=== PATIENT | female | born 1940 | race Caucasian/White ===

== ENCOUNTER → 2019-12-01 11:47 | Outpatient (CLI) | payer MEDICARE, SELFPAY ==
--- NOTE | 2019-12-01 11:50 | DI.MRI.S_ITS ---
PROCEDURE: MR LUMBAR SPINE WO CON INDICATIONS: scoliosis with left LE radiculopathy TECHNIQUE: Noncontrast sagittal T1 spin echo and T2 fast echo, sagittal STIR, axial T1 and T2 fast spin echo through the lumbar spine. In cases with scoliosis, additional coronal T2 fast spin echo may be performed. COMPARISON: None. FINDINGS: Image quality: Excellent. Alignment and Curvature: There is mild L3-L4 and L4-L5 anterolisthesis. There is trace L1-L2 and L2-L3 retrolisthesis. 22? of convex left thoracolumbar spine scoliosis. Bone Marrow: Reactive endplate changes noted adjacent to the L2-L3 and L5-S1 discs. No acute vertebral body compression fractures. Spinal Cord: Conus medullaris terminates at the L1-L2 disc level. Visualized cord demonstrates normal signal and size. Paraspinous Soft Tissues: No paravertebral masses. L1-L2: Loss of disc signal. Moderate, diffuse disc bulge. Moderate bilateral facet hypertrophy. Mild to moderate narrowing of the central canal. Moderate right and mild left neural foraminal narrowing. No neural compression. L2-L3: Loss of disc signal and height. Moderate, diffuse disc bulge. Moderate bilateral facet hypertrophy. Mild to moderate narrowing of the central canal. Moderate right and mild left neural foraminal narrowing. No neural compression. L3-L4: Loss of disc signal and height. Mild, diffuse disc bulge. Severe bilateral facet hypertrophy. Moderate narrowing of the central canal. Mild bilateral neural foraminal narrowing. No neural compression. L4-L5: Loss of disc signal and height. Mild to moderate diffuse disc bulge. Severe bilateral facet hypertrophy. Moderate narrowing of the central canal. Moderate right and qhkaxuts-vp-ralyax left neural foraminal narrowing with slight compression of the exiting left L4 nerve root. L5-S1: Loss of disc signal. Mild, diffuse disc bulge. Left foraminal disc protrusion which encroaches on the left neural foramen. Moderate bilateral facet hypertrophy. No central stenosis. Severe left neural foraminal narrowing with compression of the exiting left L5 nerve root. IMPRESSION: 1. Multilevel degenerate disc disease. 2. Multilevel facet arthropathy. 3. Grade 1 L3-L4 and L4-L5 degenerative spondylolisthesis. 4. No significant central canal narrowing that results in crowding or compression of the nerve roots of the cauda equina. 5. Severe left L5-S1 neural foraminal narrowing with compression of the exiting left L5 nerve root. Moderate to severe left L4-L5 neural foraminal narrowing with slight compression of the exiting left L4 nerve root. Dictated by: Ariane Schumacher MD, PhD on 12/01/2019 at 16:55 Approved by: Ariane Schumacher MD, PhD on 12/01/2019 at 17:00
== END ==
PROVIDERS: PCP Family Medicine; Referring Provider Physical Medicine & Rehabilitation; Visit Provider Physical Medicine & Rehabilitation
DX: M43.16 Spondylolisthesis, lumbar region (principal); M41.85 Other forms of scoliosis, thoracolumbar region; M51.16 Intervertebral disc disorders with radiculopathy, lumbar region; M51.17 Intervertebral disc disorders with radiculopathy, lumbosacral region; M47.26 Other spondylosis with radiculopathy, lumbar region; M47.27 Other spondylosis with radiculopathy, lumbosacral region; Z85.3 Personal history of malignant neoplasm of breast
CPT/HCPCS: 72148

== ENCOUNTER → 2020-09-13 07:57 | Outpatient (CLI) | payer MEDICARE, SELFPAY ==
[2020-09-13 14:18] LABS: COVID19 -Nasal RAPID Negative (Negative)
== END ==
PROVIDERS: PCP Family Medicine; Visit Provider Physical Medicine & Rehabilitation
DX: Z20.822 Contact with and (suspected) exposure to COVID-19 (principal)
CPT/HCPCS: 87635; C9803

== ENCOUNTER 2020-09-15 13:35 | Outpatient (CLI) | payer MEDICARE, SELFPAY ==
[2020-09-15] VITALS (9 sets, daily range): BP systolic 103–162; BP diastolic 66–96; PULSE 63–73; RESP 13–24; TEMP 36.6; O2SAT 96–100
--- NOTE | 2020-09-15 13:37 | DI.RAD.S_ITS ---
PROCEDURE: PAIN L INTERLAMINAR/CAUDAL INJ INDICATIONS: SPONDYLOSIS COMPARISON: [facility], RG, XR L-SPINE 2-3V, 10/01/2019, 10:58. FINDINGS: Fluoroscopic spot filming was performed to verify placement of a spinal needle at the L5-S1 level, as labeled on the films. Appropriate location of the needle tip was confirmed by injection of iodinated contrast. IMPRESSION: No significant intraprocedural abnormality. Dictated by: Danial Lewis M.D. on 09/15/2020 at 14:19 Approved by: Danial Lewis M.D. on 09/15/2020 at 14:19
[2020-09-15] MEDS: MIDAZOLAM 5 MG/5 ML VIAL IV (14:31)
--- NOTE | 2020-09-15 14:31 | PC.NURSE ---
MD aware that celebrex was not held and that she continued to take it to see if it would help her rib pain. MD moving forward with injection
[2020-09-15] MEDS: IOPAMIDOL 15 ML VIAL 3 ML INJ (14:32)
[2020-09-15] MEDS: BUPIVACAINE 0.25% (PF) VIAL 2 ML INJ (14:33)
[2020-09-15] MEDS: BETAMETHASONE 30 MG/5 ML MDV 6 MG INJ (14:33)
[2020-09-15] MEDS: DEXAMETHASONE 10 MG/ML VIAL 20 MG INJ (14:33)
--- NOTE | 2020-09-15 14:44 | PM.PROC.IR.1 ---
Date/Time/Diagnoses Date of procedure: 09/15/20 Time of procedure: 14:44 Pre-procedure diagnosis: 1. HNP WITH RADICULAR FEATURES, 2. MULTILEVEL CENTRAL STENOSIS, Post-procedure diagnosis: same Procedure Notes Procedure: 1. FLUOROSCOPICALLY GUIDED CONTRAST CONTROLLED INTERLAMINAR EPIDURAL STEROID INJECTION - L5/S1 Indications: Dahiana is referred by for treatment of Bilateral Foraminal Stenosis L>R LE symptoms. Physician: Atif Carter Total Fluoroscopy time (seconds): 8 Total sedation minutes: 9 Complications: none Procedure in detail & Post-procedure care: FINDINGS Multilevel Central Spinal Stenosis with Nerve Root Compression DESCRIPTION OF PROCEDURE Fluoroscopically guided, contrast-controlled L5/S1 translaminar epidural steroid injection. Following review of allergy and review of potential side effects and complications, including, but not necessarily limited to, infection, allergic reaction, local tissue breakdown, temporary as well as permanent nerve injury, paralysis, stroke and possible , the patient indicated that the patient understood and agreed to proceed. An informed consent document was signed by the patient, witnessed by a nurse, and placed in the patient's chart. Additionally, other treatment options including modalities, medications, and physical therapy were reviewed with the patient. After review of previous anaesthesic history and IV conscious sedation the patient was deemed safe to proceed with today?s procedure with IV conscious sedation as ASA class II designation. Safety time-out was performed to confirm patient ID, procedure to be performed and site of procedure. IV sedation was accomplished with a combination of 2mg of Versed administered by the RN after DO order, titrated to patient comfort during the course of the procedure while the patient remained responsive to all verbal commands. In the prone position, following sterile prep and drape of the lumbar region, the L5/S1 translaminar space was identified fluoroscopically. The skin was anesthetized via a 25-gauge, 1.5-inch needle with 1% lidocaine solution. At this point, a 22-gauge short bevel spinal needle was atraumatically introduced and advanced under fluoroscopic guidance into the region of the L5/S1 translaminar space. Depth was confirmed on lateral view. Radiological data, including multiple fluoroscopic views of the lumbar spine, reveal a spinal needle at the L5/S1 translaminar space. Lateral views then show placement of the needle in the epidural space. Subsequent views show contrast material flowing superiorly and inferiorly in the epidural space. No vascular or intrathecal uptake is observed. At this point, using loss of resistance technique with saline and air, the epidural space was entered. This was confirmed following negative aspiration with injection of approximately 1.5cc of Isovue 200, showing excellent epidural flow without vascular or intrathecal uptake. At this point, 1cc of 1% lidocaine solution combined with 3cc or 20mg of dexamethasone and 6mg of betamethasone was injected without incident. The patent tolerated the procedure without signs of symptoms of complications prior to transfer to the recovery area for further monitoring. The patient was then transferred to the recovery area where they were observed for an appropriate period of time after the injection. The patient reported a VAS score of 6 prior to the procedure and a post-procedure VAS of 0. POST OP INSTRUCTIONS The patient was provided a Pain Log to continue to record their response to the target-specific procedure prior to follow-up visit with their referring physician. Additionally, specific post-injection care instructions and a contact number to our office were provided if concerns arise regarding possible complications associated with the procedure are suspected.
== END 2020-09-15 15:10 | disposition home or self-care (01) ==
LOC: RAD 13:36
PROVIDERS: PCP Family Medicine; Referring Provider Family Medicine; Visit Provider Physical Medicine & Rehabilitation
DX: M51.17 Intervertebral disc disorders with radiculopathy, lumbosacral region (principal); M48.07 Spinal stenosis, lumbosacral region
CPT/HCPCS: 62323; J0702; J1100; J2250; J3010

== ENCOUNTER → 2020-11-09 12:58 | Outpatient (CLI) | payer MEDICARE, SELFPAY ==
--- NOTE | 2020-11-09 12:59 | DI.RAD.S_ITS ---
PROCEDURE: XR LUMBAR SPINE MIN 4V INDICATIONS: BACK PAIN TECHNIQUE: AP, lateral, oblique, and coned-down views of L5-S1 COMPARISON: None. FINDINGS: Bones: The lumbar spine has multilevel degenerative changes and leftward curvature with a Mitchell angle of 30 degrees. No vertebral body height loss. The facets in the lumbar spine demonstrates severe degenerative changes. Disc space narrowing is present at L2-3, L3-4, and L4-5. Soft tissues: Overlying bowel gas pattern is normal. No suspicious soft tissue calcifications. The aorta has atherosclerotic calcifications with no aneurysmal dilatation. IMPRESSION: 1. Severe multilevel degenerative changes and facet arthrosis with levoscoliosis. 2. Disc disease throughout the lumbar spine at L2-3, L3-4, and L4-5. Dictated by: Junaid Nava M.D. on 11/09/2020 at 15:11 Approved by: Junaid Nava M.D. on 11/09/2020 at 15:15
== END ==
PROVIDERS: PCP Family Medicine; Referring Provider Physical Medicine & Rehabilitation; Visit Provider Physical Medicine & Rehabilitation
DX: M51.16 Intervertebral disc disorders with radiculopathy, lumbar region (principal); M47.26 Other spondylosis with radiculopathy, lumbar region; M41.50 Other secondary scoliosis, site unspecified; S32.030S Wedge compression fracture of third lumbar vertebra, sequela
CPT/HCPCS: 72110; 99214

== ENCOUNTER → 2021-03-07 13:57 | Outpatient (CLI) | payer MEDICARE, SELFPAY ==
[2021-03-07 15:12] LABS: COVID19 -Nasal RAPID Negative (Negative)
== END ==
PROVIDERS: PCP Family Medicine; Referring Provider Physical Medicine & Rehabilitation; Visit Provider Physical Medicine & Rehabilitation
DX: Z20.822 Contact with and (suspected) exposure to COVID-19 (principal)
CPT/HCPCS: 87635; C9803

== ENCOUNTER 2021-03-09 12:54 | Outpatient (CLI) | payer MEDICARE, SELFPAY ==
[2021-03-09] VITALS (8 sets, daily range): BP systolic 111–176; BP diastolic 69–95; PULSE 65–80; RESP 13–20; TEMP 37.1; O2SAT 96–99
--- NOTE | 2021-03-09 12:55 | DI.RAD.S_ITS ---
PROCEDURE: PAIN L/S FACET INJ/BLK 1ST ÁNGEL COMPARISON: [facility], XA, PAIN L INTERLAMINAR/CAUDAL INJ, 09/15/2020, 14:32. INDICATIONS: SPONDYLOSIS FINDINGS: Fluoroscopic spot filming was performed to verify placement of bilateral spinal needles at the L2-L3 level and L3-L4 level, as labeled on the films. Appropriate location of the needle tips was confirmed by injection of iodinated contrast. IMPRESSION: Intraprocedural examination within normal limits. Dictated by: Danial Lewis M.D. on 03/09/2021 at 14:33 Approved by: Danial Lewis M.D. on 03/09/2021 at 14:33
[2021-03-09] MEDS: MIDAZOLAM 5 MG/5 ML VIAL IV (13:46)
[2021-03-09] MEDS: LIDOCAINE 1% 20 ML (13:48)
[2021-03-09] MEDS: IOPAMIDOL 15 ML VIAL 3 ML INJ (13:49)
[2021-03-09] MEDS: BUPIVACAINE 0.5% (PF) VIAL 5 ML INJ (13:50)
[2021-03-09] MEDS: BETAMETHASONE 30 MG/5 ML MDV 12 MG INJ (13:51)
--- NOTE | 2021-03-09 14:05 | P.PCN_ITS ---
Date/Time/Diagnoses Date of procedure: 03/09/21 Time of procedure: 14:05 Pre-procedure diagnosis: 1. FACET ARTHROPATHY 2. AXIAL LBP 3. MULTILEVEL DDD Post-procedure diagnosis: same Procedure Notes Procedure: 1. FLUOROSCOPICALLY GUIDED CONTRAST CONTROLLED FACET JOINT INJECTIONS BILATERAL L2/3, L3/4 Indications: Dahiana is referred by Dr. Rodriguez for treatment of Axial LBP Physician: Atif Carter Total Fluoroscopy time (seconds): 12 Total sedation minutes: 12 Complications: none Procedure in detail & Post-procedure care: FINDINGS Multilevel Facet Arthropathy with Clinically significant axial LBP DESCRIPTION OF PROCEDURE Fluoroscopically guided, contrast-controlled bilateral L2/3, L3/4 facet joint injections. Following review of allergy and review of potential side effects and complications, including, but not necessarily limited to, infection, allergic reaction, local tissue breakdown, stroke, temporary or permanent nerve injury, paralysis, and possible , the patient indicated that the patient understood and agreed to proceed. An informed consent document was signed by the patient, witnessed by a nurse, and placed in the patient's chart. Additionally, other treatment options including medications, modalities, and physical therapy were reviewed with the patient. After review of previous anaesthesic history and IV conscious sedation the patient was deemed safe to proceed with today's procedure with IV conscious sedation as ASA class II designation. Safety time-out was performed to confirm patient ID, procedure to be performed and site of procedure. IV sedation was accomplished with a combination of 2mg of Versed administered by the RN after DO order, titrated to patient comfort during the course of the procedure while the patient remained responsive to all verbal commands In the prone position, following sterile prep and drape of the lumbar region, the posterior aspect of the L2/3, L3/4 facet joints were identified fluoroscopically. The skin was anesthetized via a 25-gauge 1.5-inch needle with 1% lidocaine solution into the corresponding facet joints. At this point, a 22- gauge 3.5-inch spinal needle was atraumatically introduced and advanced under fluoroscopic guidance into the corresponding facet joints. Following negative aspiration, injections of approximately 0.2cc of Isovue 200 confirmed interarticular placement without vascular uptake. The identical procedure was then performed at the L2/3, L3/4 facet joints on the left. Radiological data, including multiple fluoroscopic views of the lumbosacral spine, reveal a spinal needle at the L2/3, L3/4 facet joints bilaterally. Subsequent views show flow of contrast material both superiorly and inferiorly within the joint space without vascular or intrathecal uptake. At this point, a total of 0.5cc including a mixture of 0.25cc Marcaine and 0.25cc betamethasone was injected without complication into each of the corresponding facet joints. The patient tolerated the procedure well without signs or symptoms of complications prior to transfer to the recovery area continued monitoring without incident. The patient was then transferred to the recovery area where they were observed for an appropriate period of time after the injection. The patient reported a VAS score of 7 prior to the procedure and a post-procedure VAS of 0. POST OP INSTRUCTIONS The patient was provided a Pain Log to continue to record their response to the target-specific procedure prior to follow-up visit with their referring physician. Additionally, specific post-injection care instructions and a contact number to our office were provided if concerns arise regarding possible complications associated with the procedure are suspected.
== END 2021-03-09 14:22 | disposition home or self-care (01) ==
LOC: RAD 12:55
PROVIDERS: PCP Family Medicine; Referring Provider Physical Medicine & Rehabilitation; Visit Provider Physical Medicine & Rehabilitation
DX: M47.816 Spondylosis without myelopathy or radiculopathy, lumbar region (principal); M51.36 Other intervertebral disc degeneration, lumbar region; M54.59 Other low back pain
CPT/HCPCS: 64493; 64494; 99152; J0702; J2250; J3010

== ENCOUNTER → 2022-01-10 14:19 | Outpatient (CLI) | payer MEDICARE, SELFPAY ==
--- NOTE | 2022-01-10 14:21 | DI.RAD.S_ITS ---
PROCEDURE: XR LUMBAR SPINE MIN 4V INDICATIONS: BACK PAIN TECHNIQUE: 5 views of the lumbar spine were acquired, including bilateral oblique views. COMPARISON: [facility], , XR LUMBAR SPINE MIN 4V, 11/09/2020, 13:02. FINDINGS: Bones: 5 nonrib-bearing vertebrae are present. Similar left convexity scoliosis of the lumbar spine centered at L3. Severe multilevel degenerative changes redemonstrated with disc height loss, endplate spurring, and facet degenerative changes, not substantially changed. No acute appearing vertebral body compression fracture. Possible remote minimal compression deformity of the L3 and L1 superior endplates, however evaluation is difficult due to the spinal curvature. Soft tissues: Overlying bowel gas pattern is normal. Vascular calcifications are present. Oblique images: No pars defects. IMPRESSION: Similar severe multilevel degenerative changes of the lumbar spine. No definite acute fracture visualized radiographically. Dictated by: Jacky Souza M.D. on 01/10/2022 at 20:23 Approved by: Jacky Souza M.D. on 01/10/2022 at 20:31
== END ==
PROVIDERS: PCP Family Medicine; Referring Provider Physical Medicine & Rehabilitation; Visit Provider Physical Medicine & Rehabilitation
DX: M47.816 Spondylosis without myelopathy or radiculopathy, lumbar region (principal); S32.030S Wedge compression fracture of third lumbar vertebra, sequela; M54.17 Radiculopathy, lumbosacral region; M41.50 Other secondary scoliosis, site unspecified; Z68.23 Body mass index [BMI] 23.0-23.9, adult
CPT/HCPCS: 72110; 99214

== ENCOUNTER 2022-02-15 12:24 | Outpatient (CLI) | payer MEDICARE, SELFPAY ==
[2022-02-15] VITALS (8 sets, daily range): BP systolic 137–176; BP diastolic 61–82; PULSE 65–73; RESP 12–20; TEMP 36.3; O2SAT 95–99
--- NOTE | 2022-02-15 12:27 | DI.RAD.S_ITS ---
PROCEDURE: PAIN L INTERLAMINAR/CAUDAL INJ INDICATIONS: SPONDYLOSIS COMPARISON: [facility], , PAIN L INTERLAMINAR/CAUDAL INJ, 09/15/2020, 14:32. FINDINGS: Fluoroscopic spot filming was performed to verify placement of spinal needles at the left L5-S1 level(s), as labeled on the films. Appropriate location(s) of the needle tip(s) was confirmed by injection of iodinated contrast. IMPRESSION: Fluoroscopy for pain management. Dictated by: Burke Loo M.D. on 02/15/2022 at 15:34 Approved by: Burke Loo M.D. on 02/15/2022 at 15:34
[2022-02-15] MEDS: MIDAZOLAM 2 MG/2 ML VIAL IV (13:31)
--- NOTE | 2022-02-15 13:42 | P.PCN_ITS ---
Date/Time/Diagnoses Date of procedure: 02/15/22 Time of procedure: 13:43 Pre-procedure diagnosis: 1. HNP WITH RADICULAR FEATURES, 2. MULTILEVEL CENTRAL STENOSIS, Post-procedure diagnosis: same Procedure Notes Procedure: 1. FLUOROSCOPICALLY GUIDED CONTRAST CONTROLLED INTERLAMINAR EPIDURAL STEROID INJECTION - L5/S1 Indications: Shae is referred by Dr. Rodriguez for treatment of Bilateral Foraminal Stenosis L>R LE symptoms. Physician: Atif Carter Total Fluoroscopy time (seconds): 5 Total sedation minutes: 9 Complications: none Procedure in detail & Post-procedure care: FINDINGS Multilevel Central Spinal Stenosis with Nerve Root Compression DESCRIPTION OF PROCEDURE Fluoroscopically guided, contrast-controlled L5/S1 translaminar epidural steroid injection. Following review of allergy and review of potential side effects and complications, including, but not necessarily limited to, infection, allergic reaction, local tissue breakdown, temporary as well as permanent nerve injury, paralysis, stroke and possible , the patient indicated that the patient understood and agreed to proceed. An informed consent document was signed by the patient, witnessed by a nurse, and placed in the patient's chart. Additionally, other treatment options including modalities, medications, and physical therapy were reviewed with the patient. After review of previous anaesthesic history and IV conscious sedation the patient was deemed safe to proceed with today?s procedure with IV conscious sedation as ASA class II designation. Safety time-out was performed to confirm patient ID, procedure to be performed and site of procedure. IV sedation was accomplished with a combination of 2mg of Versed administered by the RN after DO order, titrated to patient comfort during the course of the procedure while the patient remained responsive to all verbal commands. In the prone position, following sterile prep and drape of the lumbar region, the L5/S1 translaminar space was identified fluoroscopically. The skin was anesthetized via a 25-gauge, 1.5-inch needle with 1% lidocaine solution. At this point, a 22-gauge short bevel spinal needle was atraumatically introduced and advanced under fluoroscopic guidance into the region of the L5/S1 translaminar space. Depth was confirmed on lateral view. Radiological data, including multiple fluoroscopic views of the lumbar spine, reveal a spinal needle at the L5/S1 translaminar space. Lateral views then show placement of the needle in the epidural space. Subsequent views show contrast material flowing superiorly and inferiorly in the epidural space. No vascular or intrathecal uptake is observed. At this point, using loss of resistance technique with saline and air, the epidural space was entered. This was confirmed following negative aspiration with injection of approximately 1.5cc of Isovue 200, showing excellent epidural flow without vascular or intrathecal uptake. At this point, 1 cc of 1% lido hiram solution combined with 3cc or 20mg of dexamethasone and 6mg of betamethasone was injected without incident. The patent tolerated the procedure without signs of symptoms of complications prior to transfer to the recovery area for further monitoring. The patient was then transferred to the recovery area where they were observed for an appropriate period of time after the injection. The patient reported a VAS score of 6 prior to the procedure and a post-procedure VAS of 0. POST OP INSTRUCTIONS The patient was provided a Pain Log to continue to record their response to the target-specific procedure prior to follow-up visit with their referring physician. Additionally, specific post-injection care instructions and a contact number to our office were provided if concerns arise regarding possible complications associated with the procedure are suspected.
[2022-02-15] MEDS: DEXAMETHASONE 10 MG/ML VIAL 20 MG INJ (13:50)
[2022-02-15] MEDS: BETAMETHASONE 30 MG/5 ML MDV 6 MG INJ (13:50)
[2022-02-15] MEDS: IOPAMIDOL 15 ML VIAL 3 ML INJ (13:50)
[2022-02-15] MEDS: BUPIVACAINE 0.25% (PF) VIAL 2 ML INJ (13:50)
== END 2022-02-15 14:05 | disposition home or self-care (01) ==
LOC: RAD 12:25
PROVIDERS: PCP Family Medicine; Referring Provider Physical Medicine & Rehabilitation; Visit Provider Physical Medicine & Rehabilitation
DX: M51.17 Intervertebral disc disorders with radiculopathy, lumbosacral region (principal); M48.07 Spinal stenosis, lumbosacral region
CPT/HCPCS: 62323; J0702; J1100; J2250; J3490

== ENCOUNTER 2022-06-05 12:56 | Outpatient (CLI) | payer MEDICARE, SELFPAY ==
[2022-06-05] VITALS (8 sets, daily range): BP systolic 132–193; BP diastolic 81–97; PULSE 73–90; RESP 12–20; TEMP 36.2; O2SAT 96–99
--- NOTE | 2022-06-05 12:57 | DI.RAD.S_ITS ---
PROCEDURE: PAIN L/SI FACET INJ/BLK 1STL INDICATIONS: SPONDYLOSIS COMPARISON: [facility], XA, PAIN L INTERLAMINAR/CAUDAL INJ, 02/15/2022, 13:35. [facility], CR, XR LUMBAR SPINE MIN 4V, 01/10/2022, 14:24. FINDINGS: Fluoroscopic spot filming was performed to verify placement of spinal needles on the left at the L3-L4 and L4-L5 levels, as labeled on the films. Appropriate location of the needle tips was confirmed by injection of iodinated contrast. IMPRESSION: Intraprocedural examination demonstrating appropriate positions of the needles. Dictated by: Danial Lewis M.D. on 06/05/2022 at 14:08 Approved by: Danial Lewis M.D. on 06/05/2022 at 14:08
[2022-06-05] MEDS: MIDAZOLAM 2 MG/2 ML VIAL IV (13:52)
[2022-06-05] MEDS: IOPAMIDOL 15 ML VIAL 3 ML INJ (13:57)
[2022-06-05] MEDS: BETAMETHASONE 30 MG/5 ML MDV 12 MG INJ (13:57)
[2022-06-05] MEDS: BUPIVACAINE 0.5% MDV 5 ML SUBCUT (13:58)
--- NOTE | 2022-06-05 14:11 | P.PCN_ITS ---
Date/Time/Diagnoses Date of procedure: 06/05/22 Time of procedure: 14:11 Pre-procedure diagnosis: 1. FACET ARTHROPATHY, 2. AXIAL LBP, 3. MULTILEVEL DDD Post-procedure diagnosis: same Procedure Notes Procedure: 1. FLUOROSCOPICALLY GUIDED CONTRAST CONTROLLED FACET JOINT INJECTIONS LEFT L3/4, L4/5 Indications: Dahiana is referred by Dr. Rodriguez for treatment of Axial LBP Physician: Atif Carter Total Fluoroscopy time (seconds): 6 Total sedation minutes: 10 Complications: none Procedure in detail & Post-procedure care: FINDINGS Multilevel Facet Arthropathy with Clinically significant axial LBP DESCRIPTION OF PROCEDURE Fluoroscopically guided, contrast-controlled left L3/4, L4/5 facet joint injections. Following review of allergy and review of potential side effects and complications, including, but not necessarily limited to, infection, allergic reaction, local tissue breakdown, stroke, temporary or permanent nerve injury, paralysis, and possible , the patient indicated that the patient understood and agreed to proceed. An informed consent document was signed by the patient, witnessed by a nurse, and placed in the patient's chart. Additionally, other treatment options including medications, modalities, and physical therapy were reviewed with the patient. After review of previous anaesthesic history and IV conscious sedation the patient was deemed safe to proceed with today?s procedure with IV conscious sedation as ASA class II designation. Safety time-out was performed to confirm patient ID, procedure to be performed and site of procedure. IV sedation was accomplished with a combination of 2mg of Versed administered by the RN after DO order, titrated to patient comfort during the course of the procedure while the patient remained responsive to all verbal commands. In the prone position, following sterile prep and drape of the lumbar region, the posterior aspect of the left L3/4, L4/5 facet joints were identified fluoroscopically. The skin was anesthetized via a 25-gauge 1.5-inch needle with 1% lidocaine solution into the corresponding facet joints. At this point, a 22- gauge 3.5-inch spinal needle was atraumatically introduced and advanced under fluoroscopic guidance into the corresponding facet joints. Following negative aspiration, injections of approximately 0.2cc of Isovue 200 confirmed interarticular placement without vascular uptake. Radiological data, including multiple fluoroscopic views of the lumbosacral spine, reveal a spinal needle at the left L3/4, L4/5 facet joints. Subsequent views show flow of contrast material both superiorly and inferiorly within the joint space without vascular or intrathecal uptake. At this point, a total of 0.5cc including a mixture of 0.25cc Marcaine and 0.25cc betamethasone was injected without complication into each of the corresponding facet joints. The patient tolerated the procedure well without signs or symptoms of complications prior to transfer to the recovery area for further monitoring. The patient was then transferred to the recovery area where they were observed for an appropriate period of time after the injection. The patient reported a VAS score of 7 prior to the procedure and a post-procedure VAS of 0. POSTOP INSTRUCTIONS The patient was provided a Pain Log to continue to record their response to the target-specific procedure prior to follow-up visit with their referring physician. Additionally, specific post-injection care instructions and a contact number to our office were provided if concerns arise regarding possible complications associated with the procedure are suspected.
== END 2022-06-05 14:31 | disposition home or self-care (01) ==
LOC: RAD 12:57
PROVIDERS: PCP Family Medicine; Referring Provider Physical Medicine & Rehabilitation; Visit Provider Physical Medicine & Rehabilitation
DX: M47.816 Spondylosis without myelopathy or radiculopathy, lumbar region (principal); M51.36 Other intervertebral disc degeneration, lumbar region
CPT/HCPCS: 64493; 64494; 99152; J0702; J2250

== ENCOUNTER → 2022-10-24 11:21 | Outpatient (CLI) | payer MEDICARE, SELFPAY ==
--- NOTE | 2022-10-24 11:22 | DI.RAD.S_ITS ---
PROCEDURE: XR SHOULDER RT MIN 2V INDICATIONS: Right shoulder impingement TECHNIQUE: 3 views of the shoulder were acquired. COMPARISON: None. FINDINGS: Bones: No fractures or dislocations. No suspicious bony lesions. There is vcnbrtgi-ks-qinptt glenohumeral joint degeneration and mild acromioclavicular joint degeneration. There is a large periarticular osteophyte arising from the inferior aspect of the humeral head. Visualized ribs appear intact. Soft tissues: No suspicious soft tissue calcifications. Surgical clips in the right breast. IMPRESSION: 1. Yopapsyb-qj-sbxvky degenerative joint disease. If clinical symptoms persist or there is clinical suspicion for internal derangement is, MRI is suggested for further evaluation. Dictated by: Bukre Loo M.D. on 10/24/2022 at 12:08 Approved by: Burke Loo M.D. on 10/24/2022 at 12:10
== END ==
PROVIDERS: PCP Physician Assistant; Referring Provider Physical Medicine & Rehabilitation; Visit Provider Physical Medicine & Rehabilitation
DX: M19.011 Primary osteoarthritis, right shoulder (principal); M75.41 Impingement syndrome of right shoulder; M47.816 Spondylosis without myelopathy or radiculopathy, lumbar region; M41.50 Other secondary scoliosis, site unspecified; M54.17 Radiculopathy, lumbosacral region; S32.030S Wedge compression fracture of third lumbar vertebra, sequela; Z85.3 Personal history of malignant neoplasm of breast
CPT/HCPCS: 73030; 99214

== ENCOUNTER 2023-01-10 12:15 | Outpatient (CLI) | payer MEDICARE, SELFPAY ==
[2023-01-10] VITALS (8 sets, daily range): BP systolic 153–187; BP diastolic 87–107; PULSE 77–89; RESP 16–20; O2SAT 96–99
--- NOTE | 2023-01-10 12:16 | DI.RAD.S_ITS ---
PROCEDURE: PAIN L/SI FACET INJ/BLK 1STL INDICATIONS: SPONDYLOSIS COMPARISON: [facility], , PAIN L/SI FACET INJ/BLK 1STL, 06/05/2022, 14:56. FINDINGS: Fluoroscopic spot filming was performed to verify placement of spinal needles on the left at the L3, L4, and L5 levels, as labeled on the films. Appropriate location of the needle tips was confirmed by injection of iodinated contrast. IMPRESSION: Intraprocedural examination demonstrating appropriate positions of the needles. Dictated by: Danial Lewis M.D. on 01/10/2023 at 15:20 Approved by: Danial Lewis M.D. on 01/10/2023 at 15:20
[2023-01-10] MEDS: MIDAZOLAM 2 MG/2 ML VIAL 1 MG IV (13:45)
[2023-01-10] MEDS: IOPAMIDOL 15 ML VIAL 3 ML INJ (13:50)
[2023-01-10] MEDS: BUPIVACAINE 0.5% (PF) 10 ML VIAL 2 ML INJ (13:50)
--- NOTE | 2023-01-10 13:59 | PM.PROC.IR.1 ---
Date/Time/Diagnoses Date of procedure: 01/10/23 Time of procedure: 13:59 Pre-procedure diagnosis: 1. FACET ARTHROPATHY Post-procedure diagnosis: same Procedure Notes Procedure: 1. Left L3, L4, L5 MB BLOCKS LA Indications: Dahiana is referred by CATALINA Bennett for treatment of Left Axial LBP. Physician: Atif Carter Total Fluoroscopy time (seconds): 5 Total sedation minutes: 10 Complications: none Procedure in detail & Post-procedure care: DESCRIPTION OF PROCEDURE Fluoroscopically guided, contrast-controlled left L3, L4, L5 medial branch blocks with 0.5cc of 0.5% Marcaine. Following review of allergy and review of potential side effects and complications, including, but not necessarily limited to, infection, allergic reaction, local tissue breakdown, nerve injury, paralysis, stroke and possible , the patient indicated that the patient understood and agreed to proceed. An informed consent document was signed by the patient, witnessed by a nurse, and placed in the patient's chart. After review of previous anaesthesic history and IV conscious sedation the patient was deemed safe to proceed with today?s procedure with IV conscious sedation as ASA class II designation. Safety time-out was performed to confirm patient ID, procedure to be performed and site of procedure. IV sedation was accomplished with a combination of 1mg of Versed was administered by the RN after DO order, titrated to patient comfort during the course of the procedure while the patient remained responsive to all verbal commands. In the prone position, following sterile prep and drape of the lumbar region, the left L3, L4 and L5 anatomical location of the medial branch of the dorsal ramus was identified fluoroscopically. Subsequently an anesthetic skin wheal using 1% lidocaine solution was initiated at each of the anatomical spots. Subsequently then a 22-gauge 3.5-inch spinal needle was atraumatically introduced and advanced under fluoroscopic guidance at each of the corresponding sites at the left L3, L4 and L5 MB. After negative aspiration, 0.2cc of Isovue 200 was injected, confirming placement without vascular or intrathecal uptake. Subsequently then 0.5cc of 0.5% Marcaine solution was injected at each of the corresponding sites at the left L3, L4 and L5 medial branch locations. The patient tolerated the procedure well without signs or symptoms of complications. The patient tolerated the procedure well without signs or symptoms of complications prior to transfer to the recovery area continued monitoring without incident. Post-procedure, the patient was monitored initiating provocative activities to measure the amount of relief from block of the facetogenic pain. The patient reported a VAS of 7 prior to the procedure and a post-procedure VAS of 1. It has been a pleasure to assist in the diagnostic and therapeutic care of your patient. POST OP INSTRUCTIONS The patient was provided with a Pain Log to complete over the next several hours and subsequent days prior to the patient's follow up with the ordering physician. If the patient has rustic terrazzo setter relief to the solution applied, then they may be a candidate for medial branch rhizotomy. The patient is aware, was provided, once again, with a Pain Log and will follow up with the referring physician for review and clinical correlation.
== END 2023-01-10 14:20 | disposition home or self-care (01) ==
PROVIDERS: PCP Physician Assistant; Referring Provider Physical Medicine & Rehabilitation; Visit Provider Physical Medicine & Rehabilitation
DX: M47.816 Spondylosis without myelopathy or radiculopathy, lumbar region (principal); M47.817 Spondylosis without myelopathy or radiculopathy, lumbosacral region
CPT/HCPCS: 64493; 64494; 99152; J2250

== ENCOUNTER → 2023-04-29 13:35 | Outpatient (CLI) | payer MEDICARE, SELFPAY ==
--- NOTE | 2023-04-29 | DI.MRI.S_ITS ---
PROCEDURE: MR SHOULDER RT WO CON INDICATIONS: OSTEOARTHRITIS TECHNIQUE: Noncontrast oblique coronal T2 fast spin echo with fat saturation, oblique sagittal T1 spin echo and T2 fast spin echo with fat saturation, axial T1 spin echo and T2 fast spin echo with fat saturation through the shoulder. COMPARISON: [facility], CR, XR SHOULDER RT MIN 2V, 10/24/2022, 11:17. FINDINGS: Image quality: Good Rotator cuff: Bulk: Moderate atrophy of the teres minor Mild atrophy of the infraspinatus. Teres minor: Mild tendinopathy. Supraspinatus: Mild tendinopathy. Partial thickness articular sided tear. Infraspinatus: Mild tendinopathy. Subscapularis: Moderate tendinopathy. Bones and bursae: GH joint: Moderate to severe degenerative changes. There is subchondral edema in high-grade diffuse cartilage loss. Moderate joint effusion and evidence of synovitis. Loose body/debris are seen. Possible ossified body seen in the subcoracoid space. AC joint: Moderate to severe degenerative changes. Humeral head: Subchondral edema and periarticular osteophytes, particularly at the axillary pouch. Insertional enthesopathic changes. Scapula and acromion: Subchondral edema of the glenoid. Bursa: Bursitis changes, mild. Capsule: Labrum: Circumferential attenuation and likely chronic degenerative changes. Superior labral tear is seen. Long head biceps tendon: Intra-articular tendinosis and small tear extending from the superior labrum. IGHL: Distended with effusion Rotator interval: Partially effaced Soft tissues: No axillary adenopathy. Lungs are not well seen. IMPRESSION: Moderate to severe glenohumeral and acromioclavicular degenerative changes. High-grade diffuse cartilage loss of the glenohumeral joint. There is subchondral edema. Extensive enthesopathic and osteophytic changes, particularly at the axillary pouch. Moderate joint effusion and intra-articular debris/loose bodies. Moderate to severe acromioclavicular degenerative changes. Chronic degenerative changes of the labrum and superior labral tear, extending a short length into the long head biceps tendon. Moderate atrophy of the teres minor. Mild atrophy of the infraspinatus. These findings are nonspecific. Rotator cuff tendinopathy and partial-thickness tears, without full-thickness defect identified. Dictated by: Cruz Pedersen M.D. on 04/29/2023 at 14:58 Approved by: Cruz Pedersen M.D. on 04/29/2023 at 15:05
== END ==
PROVIDERS: PCP Physician Assistant; Referring Provider Orthopaedic Surgery; Visit Provider Orthopaedic Surgery
DX: M19.011 Primary osteoarthritis, right shoulder (principal); M25.411 Effusion, right shoulder
CPT/HCPCS: 73221

== ENCOUNTER → 2023-05-16 12:54 | Outpatient (CLI) | payer MEDICARE, SELFPAY ==
[2023-05-16] VITALS (9 sets, daily range): BP systolic 147–199; BP diastolic 81–103; PULSE 69–87; RESP 12–20; TEMP 37; O2SAT 97–100
--- NOTE | 2023-05-16 13:30 | DI.RAD.S_ITS ---
PROCEDURE: PAIN L/SI FACET INJ/BLK 1STL INDICATIONS: left L3, L4 and L5 MBB SA COMPARISON: [facility], , PAIN L/SI FACET INJ/BLK 1STL, 01/10/2023, 13:49. FINDINGS: Fluoroscopic spot filming was performed to verify placement of spinal needles at the L3, L4, and L5 left medial branch level(s), as labeled on the film. IMPRESSION: Imaging guidance provided for multilevel lumbar medial branch block Dictated by: Kiko Cox M.D. on 05/16/2023 at 16:41 Approved by: Kiko Cox M.D. on 05/16/2023 at 16:48
[2023-05-16] MEDS: MIDAZOLAM 2 MG/2 ML VIAL 1 MG IV ×2 (13:44→13:47)
[2023-05-16] MEDS: iopamidoL 15 ML VIAL 3 ML INJ (13:53)
[2023-05-16] MEDS: LIDOCAINE 2% INJ MDV 20ML INJ (13:53)
--- NOTE | 2023-05-16 14:11 | P.PCN_ITS ---
Date/Time/Diagnoses Date of procedure: 05/16/23 Time of procedure: 14:11 Pre-procedure diagnosis: 1. FACET ARTHROPATHY Post-procedure diagnosis: same Procedure Notes Procedure: LEFT L3, L4 AND L5 DIAGNOSTIC MB BLOCKS Indications: Dahiana is referred by CATALINA Bennett for treatment of Left Axial LBP. Physician: Atif Carter Total Fluoroscopy time (seconds): 8 Total sedation minutes: 15 Complications: none Procedure in detail & Post-procedure care: DESCRIPTION OF PROCEDURE Fluoroscopically guided, contrast-controlled left L3, L4 AND L5 medial branch blocks with 0.5cc of 2% Lidocaine. Following review of allergy and review of potential side effects and complications, including, but not necessarily limited to, infection, allergic reaction, local tissue breakdown, nerve injury, paralysis, stroke and possible , the patient indicated that the patient understood and agreed to proceed. An informed consent document was signed by the patient, witnessed by a nurse, and placed in the patient's chart. After review of previous anaesthesic history and IV conscious sedation the patient was deemed safe to proceed with today's procedure with IV conscious sedation as ASA class II designation. Safety time-out was performed to confirm patient ID, procedure to be performed and site of procedure. IV sedation was accomplished with a combination of 2mg of Versed was administered by the RN after DO order, titrated to patient comfort during the course of the procedure while the patient remained responsive to all verbal commands In the prone position, following sterile prep and drape of the lumbar region, the left L3, L4 AND L5 anatomical location of the medial branch of the dorsal ramus was identified fluoroscopically. Subsequently an anesthetic skin wheal using 1% lidocaine solution was initiated at each of the anatomical spots. Subsequently then a 22-gauge 3.5-inch spinal needle was atraumatically introduced and advanced under fluoroscopic guidance at each of the corresponding sites at the left L3, L4 and L5 MB. After negative aspiration, 0.2cc of Isovue 200 was injected, confirming placement without vascular or intrathecal uptake. Subsequently then 0.5cc of 2% Lidocaine solution was injected at each of the corresponding sites at the left L3, L4 and L5 medial branch locations. The patient tolerated the procedure well without signs or symptoms of complications. The patient tolerated the procedure well without signs or symptoms of complications prior to transfer to the recovery area continued monitoring without incident. Post-procedure, the patient was monitored initiating provocative activities to measure the amount of relief from block of the facetogenic pain. The patient reported a VAS of 7 prior to the procedure and a post-procedure VAS of 1. It has been a pleasure to assist in the diagnostic and therapeutic care of your patient. POST OP INSTRUCTIONS The patient was provided with a Pain Log to complete over the next several hours and subsequent days prior to the patient's follow up with the ordering physician. If the patient has drapery estimator relief to the solution applied, then they may be a candidate for medial branch rhizotomy. The patient is aware, was provided, once again, with a Pain Log and will follow up with the referring physician for review and clinical correlation
== END ==
LOC: RAD 12:55
PROVIDERS: PCP Physician Assistant; Referring Provider Physical Medicine & Rehabilitation; Visit Provider Physical Medicine & Rehabilitation
DX: M47.816 Spondylosis without myelopathy or radiculopathy, lumbar region (principal)
CPT/HCPCS: 64493; 64494; 64495; 99152; J2250

== ENCOUNTER → 2023-06-13 09:34 | Outpatient (CLI) | payer MEDICARE, SELFPAY ==
--- NOTE | 2023-06-13 09:36 | DI.NM.S_ITS ---
PROCEDURE: NM JOHN PERF SPECT REST & STR Rest and exercise myocardial perfusion SPECT with gated imaging and ejection fraction RADIOPHARMACEUTICAL: 11.8 mCi Tc-99m sestamibi IV at rest and 26.7 mCi Tc-99m sestamibi IV at peak exercise. A [id number] was performed. INDICATIONS: Abnormal electrocardiogram [ECG] [EKG] TECHNIQUE: Radiopharmaceutical was injected at peak stress test, and also at rest. SPECT images were obtained. SPECT myocardial perfusion images were displayed in short axis, horizontal long axis, and vertical long axis views. Gated images were reviewed using [employer] [place] software. COMPARISON: None. CARDIAC STRESS: A standard Dago treadmill exercise tolerance test was performed by the patient under the supervision of an attending staff. The patient exercised for 5 minutes and 0 seconds; 5.1 METS; functional aerobic impairment (LAURA) is -5%. Hemodynamic data: There is normal blood pressure and heart rate response to exercise stress. Patient achieved 101% of maximum predicted heart rate at peak exercise. Resting blood pressure 166/102. Maximum blood pressure 198/104. Symptoms: Patient denied chest pain during exercise. EKG: No diagnostic EKG changes of ischemia; rare PACs and PVCs. FINDINGS: Raw data: There is good myocardial labeling by radiotracer. There is evidence of patient motion artifacts. The patient's right arm was down for image acquisition. Lxjh-ra-klmal ratio is 0.48 (normal is less than 0.38 for sestamibi tracer, and less than 0.50 for thallium tracer). Left ventricle function: Gated images demonstrate normal left ventricle wall thickening. No segmental wall motion abnormality. No transient ischemic dilation; TID is 1.0 (normal less than 1.3). The left ventricle resting end-diastolic volume is 67 mL. Left ventricle stress ejection fraction is >75%; normal values are above 45%. Myocardial perfusion: There is a small size, mild intensity reversible distal lateral wall defect. No fixed perfusion defects. IMPRESSION: Study quality reduced due to patient motion and the right arm being down during image acquisition. Likely low risk study. There is a small size, mild intensity reversible distal lateral wall defect suggestive of small territory of ischemia. Hyperdynamic LV function with normal wall motion. No exercise-induced ECG changes. Baseline hypertension with appropriate exercise-induced increase. Normal heart rate response. Fair exercise capacity. Dictated by: Gloria Bravo D.O. on 06/13/2023 at 16:54 Approved by: Gloria Bravo D.O. on 06/13/2023 at 17:00
== END ==
PROVIDERS: PCP Physician Assistant; Referring Provider Physician Assistant; Visit Provider Physician Assistant
DX: R94.31 Abnormal electrocardiogram [ECG] [EKG] (principal)
CPT/HCPCS: 78452; 93017; A9502

== ENCOUNTER 2023-07-11 06:08 | Day surgery (SDC) | payer MEDICARE, SELFPAY ==
[2023-07-03 13:56] VITALS: BMI 21.6
[2023-07-11 06:44] VITALS: BP 188/109; PULSE 88; RESP 16; TEMP 36.2; O2SAT 98; BMI 21.6
[2023-07-11] MEDS: LACTATED RINGERS 1,000 ML 84 ML IV (06:54)
--- NOTE | 2023-07-11 07:24 | PM.PREOP ---
Pre-operative Note Interval Note History & Physical reviewed/Exam performed by Physician: Yes Changes to H&P: No
== END 2023-07-11 14:00 | disposition home or self-care (01) ==
LOC: OR 06:10 → AC 08:26 → OR 12:32
PROVIDERS: PCP Physician Assistant; Referring Provider Orthopaedic Surgery; Visit Provider Orthopaedic Surgery
DX: M19.011 Primary osteoarthritis, right shoulder (principal); Z53.09 Procedure and treatment not carried out because of other contraindication
CPT/HCPCS: 23472; J2250; J2704; J3010

== ENCOUNTER 2023-08-08 06:16 | Day surgery (SDC) | payer MEDICARE, SELFPAY ==
[2023-08-08] VITALS (10 sets, daily range): BP systolic 150–167; BP diastolic 7–119; PULSE 62–97; RESP 11–18; TEMP 36.1–36.5; O2SAT 96–100; BMI 24.1
--- NOTE | 2023-08-08 06:35 | DI.RAD.S_ITS ---
PROCEDURE: XR SHOULDER RT MIN 2V INDICATIONS: TSA TECHNIQUE: 2 views of the shoulder were acquired. COMPARISON: [facility], CR, XR SHOULDER RT MIN 2V, 10/24/2022, 11:17. FINDINGS: Bones: No fractures or dislocations. Postsurgical changes from right total shoulder arthroplasty. The hardware appears intact without surrounding fracture or lucency. No suspicious bony lesions. Visualized ribs appear intact. Soft tissues: Overlying postsurgical changes are noted. IMPRESSION: Expected postoperative appearance of right shoulder arthroplasty. Dictated by: Obdulio Concepcion M.D. on 08/08/2023 at 16:29 Approved by: Obdulio Concepcion M.D. on 08/08/2023 at 16:29
[2023-08-08] MEDS: VANCOMYCIN 1,000 MG/200 ML PIGGYBACK 200 MG IV ×2 (06:48→18:33)
[2023-08-08] MEDS: ACETAMINOPHEN 325 MG TABLET 975 MG PO (06:49)
[2023-08-08] MEDS: LACTATED RINGERS 1,000 ML 42 ML IV ×2 (06:51→09:28)
--- NOTE | 2023-08-08 07:23 | PM.HP.1 ---
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 [facility] Medical History History of COVID-19 (08/2022) Psoriasis Easy bruisability Arthritis Bleeding ulcer (~2015) HLD (hyperlipidemia) Sciatica Scoliosis Breast cancer, right (2014) Impingement syndrome of right shoulder DJD of right shoulder Lumbosacral radiculopathy at L5 Facet arthropathy, lumbar History of right breast cancer Closed L3 vertebral fracture 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 Lumbar radiculopathy, acute Surgical History S/P epidural steroid injection Hx of LASIK Hx of left cataract extraction Hx of right knee surgery (2011) H/O abdominoplasty (12/2014) H/O right mastectomy (06/2014) Hx of right knee surgery (2000) Family History Father Prostate cancer Mother Stroke Social History household members: none Smoking Status: Never smoker alcohol intake: current Meds Home Medications and Allergies Home Medications Medication Instructions Recorded Confirmed Type atorvastatin 10 mg tablet 5 mg PO BEDTIME 11/18/19 08/08/23 History yagccydkow-bdgxbwjbtprhe-alznymyu 1 tab PO DAILY PRN Migraines 11/18/19 07/11/23 History 50 mg-325 mg-40 mg tablet diazepam 5 mg tablet 5 mg PO BEDTIME PRN Sleep 11/18/19 08/08/23 History estradiol 0.01% (0.1 mg/gram) 1 applic vaginal QWEEK 11/18/19 08/08/23 History vaginal cream sumatriptan succinate 50 mg tablet 50 mg PO DAILY PRN Migraines 11/18/19 08/08/23 History clobetasol 0.05 % scalp solution 1 applic topical BEDTIME PRN 05/16/22 07/03/23 History Psoriasis flare gabapentin 300 mg capsule 300 mg PO .COMPLEX #90 caps 05/24/22 08/08/23 Rx aspirin 81 mg capsule 81 mg PO DAILY 07/03/23 08/08/23 History calcium carb-vit D3-minerals 600 1 tab PO DAILY 07/03/23 07/03/23 History mg calcium-400 unit tablet celecoxib 200 mg capsule (Celebrex) 200 mg PO DAILY PRN Pain 07/03/23 08/08/23 History cholecalciferol (vitamin D3) 50 50 mcg PO DAILY 07/03/23 07/03/23 History mcg (2,000 unit) capsule (Vitamin D3) vitamin B complex 1 cap PO DAILY 07/03/23 07/03/23 History Allergies Allergy/AdvReac Type Severity Reaction Status Date / Time cefazolin [From Anc] Allergy Severe rash Verified 08/08/23 06:35 morphine AdvReac Severe Nausea, Verified 08/08/23 06:35 vomiting Exam Vital Signs (past 8 hours): - 08/08/23 06:51 Temperature 97.7 F Pulse Rate 64 Respiratory Rate 12 Blood Pressure 167/98 H Pulse Oximetry 96 Oxygen Delivery Method Room Air Oxygen Delivery Method Room Air Narrative Exam Narrative: Decreased range of motion to the shoulder. Difficulty going beyond 90? of forward flexion and abduction. 30? of external rotation with the arm at the side and internal rotation to the back pocket. Pain and crepitus coming from the glenohumeral joint. Normal rotator cuff strength. Assessment & Plan Assessment & Plan narrative: Patient with end-stage arthritis to the right glenohumeral joint unresponsive to conservative treatment. Due to this fact, patient is interested in surgery which would involve a total shoulder arthroplasty. Patient fully understands the risks limitations associated with the procedure. The risk, benefits, alternatives, possible complications, operative course, and postop outcomes were discussed. Complications including but not limiting to bleeding, infection, fracture, nerve injury, continued pain postoperatively or instability postoperatively were discussed in detail. Medical complications including but not limited to deep venous thrombosis event, anesthesia complications with excessive bleeding, vascular events or cardiac events and other possible complications were discussed in detail. Need for postoperative rehabilitation and anticipated hospital stay and clinical course were discussed in detail. Patient acknowledges understanding and elects to proceed with surgery.
--- NOTE | 2023-08-08 07:25 | PM.PREOP ---
Pre-operative Note Interval Note History & Physical reviewed/Exam performed by Physician: Yes Changes to H&P: No
[2023-08-08] MEDS: GENTAMICIN 330 MG in SODIUM CHLORIDE 0.9% 100 ML 108.25 MG IV (08:10)
[2023-08-08] MEDS: TRANEXAMIC ACID 1,000 MG VIAL 1000 MG INJ ×2 (08:20→09:27)
--- NOTE | 2023-08-08 08:40 | SUR.OPER ---
Beach chair with Maquet shoulder positioner. Lower body on padded OR bed. Head in foam padded head cradle, secured with straps. Non-operative arm secured <90 degrees abduction. Pillow under knees. Safety belt at thigh. Cloth tape over blanket over lower legs.
[2023-08-08] MEDS: LIDOCAINE 1% W/EPI 20 ML INJ (08:46)
[2023-08-08] MEDS: BUPIVACAINE 0.25% (PF) 30 ML, EPINEPHrine 0.15 MG INJ (08:47)
--- NOTE | 2023-08-08 09:42 | PM.OP.1 ---
Operative Date/Time/Diagnoses Date of procedure: 08/08/23 Time of procedure: 08:00 Pre-op diagnosis: Right glenohumeral joint arthritis Post-op diagnosis: same Procedure & Clinicians Procedure: Right total shoulder arthroplasty Same procedure as scheduled: Yes Indications: End-stage arthritis glenohumeral joint Surgeon: Bakari Dc Cylinder Die Machine Helper: Osbaldo Newby Anesthesia Type: General and Peripheral nerve block Operative Notes Findings: End-stage arthritic changes of the glenohumeral joint with no sign of any significant rotator cuff pathology. No sign of any high-riding humeral head or rotator cuff arthropathy Closure Type: primary Applied: implant(s) (Medium glenoid, 7 mm stem 46 x 18 head) Estimated Blood Loss (mL): 50 Procedure in detail: On date of service, Patient was met in the holding area. The operative site was signed and witnessed by the OR staff. The surgeries once again discussed with the patient and any remaining questions they had were answered fully. Patient was taken back to the operating theater and placed on the operating table in a supine position. Great care was taken to ensure that all bony prominences were properly padded. Patient was then placed into the beach chair position. The head and neck were properly positioned and secured. A timeout was performed verifying patient's name, procedure, and the operative site. The upper extremity was then prepped and draped in the normal sterile fashion. Previously, the bony anatomy and incision were marked out as well as injected with Marcaine with epinephrine. A deltopectoral approach was performed. 10 blade was used to incise the skin and fascial tissue. A deep knife was used to continue sharp dissection until the cephalic vein was visualized. The cephalic vein was dissected free allowing us to expose the deltopectoral interval. This interval was then developed. A Mitchell elevator was used to free up the deltoid of any scarring both superficially as well as deeply. The vein and the deltoid were taken laterally while the pectoralis was taken medially. This gave us good visualization of the strap muscles. The clavipectoral fascia was removed and the strap muscles were then retracted medially with the pectoralis. This gave us stabilization of the subscapularis. The circumflex vessels were ligated and the subscapularis was sharply excised off the lesser tuberosity and then tagged. Once the subscapularis was released we're able to dislocate the shoulder. Patient had end-stage arthritic changes to the humeral head as well as the glenoid with large osteophytes anterior inferiorly as well as posteriorly. A Ronger was then used to remove the osteophytes. See findings above for descriptions of the humeral head and glenoid. Next, cutting guide was placed and a saw was used to remove the humeral head. Once the head was removed it was templated. A 46 x 18 head gave us the best coverage. A starting awl was then used to find the canal and then the humerus was reamed and broached. Trial stem was placed and a variety of heads were trialed. A size 10 stem gave us the best fit. Protector placed for the osteotomy was then placed and and we turned our attention back to the subscapularis as well as the glenoid. The subscapularis was freed up and a 360? fashion. The degenerative anterior and inferior capsular tissue was removed. This was followed by removing the degenerative labral tissue from around the glenoid as well as the biceps insertion. Retractors were used to protect the axillary nerve while we remove the degenerative capsular and labral tissue. This gave us good visualization of the glenoid. Glenoid trials were used until we found the appropriate fit and curvature. A large glenoid provided the best fit. The center hole was drilled followed by reaming of the glenoid. The wound was copiously irrigated after reaming. Next the pegs were drilled and a trial glenoid was impacted into place. Once we were satisfied with the preparation of the glenoid, the final component was cemented into place. This was followed by impaction. We Return to our attention back to the humerus. The protector plate was removed and heads were trialed once again until we found the appropriate fit. Once again the 46 x 18 head provided the best coverage as well as stability to the glenohumeral joint. Trials were removed and bone tunnels were made into the humeral neck. #2 FiberWire were passed through the bone tunnels for eventual subscapularis repair. The final stem and head were impacted into place and the shoulder was reduced. It was taken through range of motion and was felt to be stable in both posterior translation as well as external and internal rotation with abduction. The subscapularis was repaired back to the lesser tuberosity through the bone tunnels. This was then reinforced with soft tissue repair. Part of the rotator interval was then closed. A drain was placed and the rest of the wound was closed in a layered fashion. The shoulder was then cleaned dried and dressed and the patient was taken to the PACU in stable condition. Patient will follow our postoperative protocol for total shoulder arthroplasty. Complications: none Post-operative Condition: stable Disposition: same day surgery Plan for aftercare: Patient will follow our postoperative protocol for a total shoulder arthroplasty
[2023-08-08] MEDS: OXYCODONE IR 5 MG TABLET PO ×2 (10:31→22:41)
[2023-08-08] MEDS: ONDANSETRON 4 MG/2 ML INJ IV ×3 (10:33→17:30)
[2023-08-08] MEDS: HYDROMORPHONE 0.5 MG INJ IV (11:01)
[2023-08-08 11:02] LABS: Estimated Glomerular Filt Rate > 60 mL/min (>60)
[2023-08-08] MEDS: LACTATED RINGERS 1,000 ML 100 ML IV ×2 (11:02→22:36)
[2023-08-08] MEDS: OXYCODONE IR 10 MG TABLET PO (11:20)
--- NOTE | 2023-08-08 13:41 | PT.IIE ---
Current Diagnoses Primary osteoarthritis, right shoulder (08/08/23) Surgery Performed Operation Date: 08/08/23 07:45 Actual Procedures p Total Shoulder Arthroplasty(Right) - Bakari Dc MD Surgical History (Last Reviewed 08/08/23 @ 07:24 by Bakari Dc MD) H/O abdominoplasty (12/2014) H/O right mastectomy (06/2014) Hx of LASIK Hx of left cataract extraction Hx of right knee surgery (2000) Hx of right knee surgery (2011) S/P epidural steroid injection Medical History (Last Reviewed 08/08/23 @ 07:24 by Bakari Dc MD) Arthritis Bleeding ulcer (~2015) Breast cancer, right (2014) Closed L3 vertebral fracture DJD of right shoulder Easy bruisability Facet arthropathy, lumbar History of COVID-19 (08/2022) History of right breast cancer HLD (hyperlipidemia) Impingement syndrome of right shoulder Lumbar radiculopathy, acute Lumbosacral radiculopathy at L5 Psoriasis Sciatica Scoliosis 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 Two steps down into dining area with two rails Home Environment Standard Height Toilet,Walk in Shower,Built-In Shower Seat Home Equipment Front Wheel Walker,Grab Bars Near Toilet,Grab Bars In Shower Employment Status Retired Additional Social History Comment Pt states that she has walking sticks and that her daughter has come up from [place] to help her for a week at d/c. M2 PT-IP Current Condition Start: 08/08/23 13:21 Freq: NEEDED Status: Active Protocol: Document 08/08/23 13:20 MB (Rec: 08/08/23 13:41 MB [id number]) Physical Therapy Current Condition Current Condition Evaluation Date 08/08/23 Treatment Diagnosis R TSR M3 PT-IP Subjective Start: 08/08/23 13:21 Freq: NEEDED Status: Active Protocol: Document 08/08/23 13:20 MB (Rec: 08/08/23 13:41 MB [id number]) Subjective Physical Therapy Visit Type Type Initial Evaluation Visit Start Time 13:20 Visit Stop Time 13:33 Number of RN INTEGRATED Visits 0 Physical Therapy Visit Comments Patient Comments I'm very nauseated. Therapy Pain Assessment Pain When Pain Assessed During Mobility Pain Present Pain Present Pain Reported Location Right arm Intensity 6 Scale Used Numeric (0 - 10) M4 PT-IP Mobility and Gait Start: 08/08/23 13:21 Freq: NEEDED Status: Active Protocol: Document 08/08/23 13:20 MB (Rec: 08/08/23 13:41 MB [id number]) PT-Bed Mobility Assessment Supine to Sit Supine to Sit Standby Assistance Sit to Supine Sit to Supine Standby Assistance Scooting Scooting to Edge of Bed Standby Assistance Scooting Up and Down in Bed Standby Assistance PT-Transfer Assessment Sit to and From Stand Sit to and from Stand Contact Guard Assistance,1 Person Assistance Equipment Transfer Assistive Device None Orthotic/Prosthetic Devices or Brace: No Transfer Ability Level of Assist Standby Assistance Comments Mobility Comments Pt requires cues and encouragement for mobility given nausea. She is very orthostatic with mobility and her BP and HR in E are: 154/ 73, 64; standing 110/79 and given nausea and pt reporting she feels like she might need to vomit and orthostasis, side steps only and returned to be Gait Assessment Gait Gait Assistance Required: Contact Guard Assist Distance (Feet) 2 Able to Maintain Weight Bearing Status Yes During Gait Assistive Devices Assistive Device None Orthotic/Prosthetic Devices or Brace: No Comments Gait Comments Left side steps only up to the HOB PT-Balance Assessment Sitting Balance and Reactions Static Sitting Balance Ability Good Dynamic Sitting Balance Ability Good Standing Balance and Reactions Static Standing Balance Ability Good Dynamic Standing Balance Ability Fair M5 PT-IP Objective Assessments Start: 08/08/23 13:21 Freq: NEEDED Status: Active Protocol: Document 08/08/23 13:20 MB (Rec: 08/08/23 13:41 MB [id number]) Orientation Orientation/Cognition Level of Alertness Alert Orientation Name,Age,Birthday,Month,Date, Year,Day of Week,Place, Situation Language Function Ability No Deficits Noted Safety Awareness Understands Safety Issues Memory Description No Deficits Noted Gross Range of Motion Upper Extremity ROM Impairments RUE in sling Lower Extremity ROM Assessment Within Functional Limits Strength Upper Extremity Strength Assessment Right Impaired Lower Extremity Strength Assessment Within Functional Limits M6 PT-IP Treatment Start: 08/08/23 13:21 Freq: NEEDED Status: Active Protocol: Document 08/08/23 13:20 MB (Rec: 08/08/23 13:41 MB [id number]) Physical Therapy Treatment Other Treatments Other Treatment Performed Per Dr. Dc's note, post-op right TSR protocol and no other details. PT provides [facility] post-op TSR handouts to patient, assume NWB and sling use, pt in sling M7 PT-IP Assessment and Plan Start: 08/08/23 13:21 Freq: NEEDED Status: Active Protocol: Document 08/08/23 13:20 MB (Rec: 08/08/23 13:41 MB [id number]) PT Summary Assessment and Plan Potential Rehabilitation Potential Good Status of Condition at Evaluation Evolving Summary Impairments Pain,ROM,Balance,Bed Mobility, Transfers,Gait,Activity Tolerance Progress Towards Goals Slow Progress due to Medical Issues Assessment Summary Pt is an 83 y/o female who presents with nausea and orthostasis same day right TSR . Con't mobility efforts with staff. Recommend 24 hour superv and PT at d/c. Goals Bed Mobility Goal Independent Transfer Goal Independent,Cane Gait Goal Independent,Cane Gait Distance 100 Other Goals Pt will ascend and descend 2 steps with rail. Days to Meet Goals 3 Frequency of Treatment Frequency Of Treatment Twice a Day Treatment Plan Physical Therapy Treatment Plan Bed Mobility Training,Transfer Training,Gait Training, Therapeutic Exercise,Balance Retraining,Post Op Education, Discharge Planning,Hot or Cold Pack Precautions Shoulder Precautions Sling Other Precautions Dr note only states post-op TSR precautions/protocol. Will assume NWB and sling. Weight Bearing Status Weight Bearing Status Non-Weight Bearing Recommendations To Nursing Amount of Assist Needed 2 Person Assist Discharge Recommendations PT Discharge Recommendations Home with 03/12 Assist Available,Outpatient PT Transportation Needs at Discharge Private Vehicle
--- NOTE | 2023-08-08 19:32 | PC.NURSE ---
Patient arrived from PACU at approximately 1050 a.m. A&OX4. Aquacel to R arm c/d/i, arm in R shoulder sling. She is able to move and grasp with fingers, and reports minimal numbness to R hand. Initially she reports pain severe upon arrival, pain well controlled with prn 0.5mg hydromorphone and prn 10 mg oxycodone. She is able to rest a while after working with PT, upon awakening reports severe nausea. VSS. She denies dizziness. Continuous monitoring.
[2023-08-08] MEDS: SENNOSIDES 8.6 MG TABLET 17.2 MG PO (21:00)
[2023-08-08] MEDS: DOCUSATE 100 MG CAPSULE PO (21:01)
[2023-08-08] MEDS: TRAMADOL 50 MG TABLET PO (21:01)
[2023-08-08] MEDS: ACETAMINOPHEN 325 MG TABLET 650 MG PO (22:43)
[2023-08-08] MEDS: ONDANSETRON 4 MG ODT PO (22:43)
[2023-08-08] MEDS: diphenhydrAMINE 25 MG TABLET 50 MG PO (22:46)
[2023-08-09 03:33] VITALS: BP 146/72; PULSE 73; RESP 17; TEMP 36.8; O2SAT 97
[2023-08-09] MEDS: OXYCODONE IR 5 MG TABLET PO ×2 (03:51→10:05)
[2023-08-09 06:56] LABS: Hematocrit 40.8 % (36-46); Hemoglobin 13.6 g/dL (12.0-16.0); Mean Corpuscular HGB Conc 33.5 % (30-36); Mean Corpuscular Volume 101.8 fL (80-100); Platelet Count 165 X10^3/uL (150-400); Red Blood Cell Count 4.01 X10^6/uL (4.0-5.2); White Blood Cell Count 13.4 X10^3/uL (4.5-11.0)
[2023-08-09 07:00] VITALS: BP 131/68; PULSE 70; RESP 16; TEMP 36.5; O2SAT 96
--- NOTE | 2023-08-09 07:02 | PM.DS.1 ---
History of Present Illness History of Present Illness Date Patient Seen: 08/09/23 Time Patient Seen: 07:02 Chief complaint: OPB Narrative: Operative Date/Time/Diagnoses Date of procedure: 08/08/23 Time of procedure: 08:00 Pre-op diagnosis: Right glenohumeral joint arthritis Post-op diagnosis: same Procedure & Clinicians Procedure: Right total shoulder arthroplasty Same procedure as scheduled: Yes Indications: End-stage arthritis glenohumeral joint Surgeon: Bakari Dc Coach Mechanic: Osbaldo Newby Anesthesia Type: General and Peripheral nerve block Operative Notes Findings: End-stage arthritic changes of the glenohumeral joint with no sign of any significant rotator cuff pathology. No sign of any high-riding humeral head or rotator cuff arthropathy Closure Type: primary Applied: implant(s) (Medium glenoid, 7 mm stem 46 x 18 head) Estimated Blood Loss (mL): 50 Discharge Providers Provider Discharge Date: 08/09/23 Primary care physician: Ne Bennett PA-C Consults: 08/08/23 09:39 Consult to Discharge Planning Routine Comment: Consult to Physical Therapy Evaluate & Treat Comment: Physician Instructions: Evaluate and Treat Discharge provider: Delia Garcia PA-C Summary Hospital Course Discharge Diagnosis: Right glenohumeral joint arthritis, s/p right total shoulder arthroplasty Hospital Course: Ms Guerin's hospital course was remarkable for post-op nausea. On the morning of POD# 1, she was feeling much better and wanted to go home w/ the assistance of her daughter. She says she also has OT set up through [facility]; it appears that an order was sent from our office. She was voiding without difficulty and was no longer nauseated. 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 Sensation to light touch intact throughout RUE. Aquacel dressing CDI. Hemovac with scant bloody drainage. Objective Labs 08/09/23 06:17 08/08/23 10:35 Labs: Laboratory Results - last 24 hr 08/08/23 08/09/23 10:35 06:17 WBC 13.4 H RBC 4.01 Hgb 13.6 Hct 40.8 MCV 101.8 H MCH 34.0 MCHC 33.5 RDW 14.0 Plt Count 165 Creatinine 0.56 Estimated GFR > 60 PFSH Medical History History of COVID-19 (08/2022) Psoriasis Easy bruisability Arthritis Bleeding ulcer (~2015) HLD (hyperlipidemia) Sciatica Scoliosis Breast cancer, right (2014) Impingement syndrome of right shoulder DJD of right shoulder Lumbosacral radiculopathy at L5 Facet arthropathy, lumbar History of right breast cancer Closed L3 vertebral fracture 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 Lumbar radiculopathy, acute Surgical History S/P epidural steroid injection Hx of LASIK Hx of left cataract extraction Hx of right knee surgery (2011) H/O abdominoplasty (12/2014) H/O right mastectomy (06/2014) Hx of right knee surgery (2000) Family History Father Prostate cancer Mother Stroke Social History household members: none Smoking Status: Never smoker alcohol intake: current Discharge Assessment & Plan Assessment and Plan Assessment: Right glenohumeral joint arthritis, s/p right total shoulder arthroplasty Plan of Treatment: Discharge home w/ daughter, HHOT w/ [facility], multimodal pain control, f/u in office in 2 weeks as scheduled. Discharge Plan Discharge Plan Patient Disposition: Home Discharge orders & Medications Discharge Orders: Discharge (Order); Ordered 08/09/23 Ordered By: Delia Garcia Prescriptions: New oxycodone 5 mg Tablet 5 mg PO Q4-6H PRN (Reason: Pain, Moderate (4-6)) Qty: 30 0RF docusate sodium 100 mg Capsule 100 mg PO BID PRN (Reason: constipation) Qty: 60 1RF ondansetron 4 mg Tablet,Disintegrating 4 mg PO Q6H PRN (Reason: Nausea And Vomiting) Qty: 20 0RF Continued vitamin B complex Capsule 1 cap PO DAILY cholecalciferol (vitamin D3) [Vitamin D3] 50 mcg (2,000 unit) Capsule 50 mcg PO DAILY calcium carbonate-vit D3-min 600 mg calcium- 400 unit Tablet 1 tab PO DAILY metoprolol tartrate 25 mg tablet 12.5 mg PO DAILY timolol maleate 0.5 % Drops 1 drp OPHTHALMIC (EYE) BID gabapentin 300 mg capsule 300 mg PO DAILY PRN (Reason: nerve pain) diazepam 5 mg tablet 5 mg PO BEDTIME PRN (Reason: Sleep) atorvastatin 10 mg tablet 5 mg PO BEDTIME ookwrcxvgm-evnqrftijpjqj-sjxi 50-325-40 mg tablet 1 tab PO DAILY PRN (Reason: Migraines) sumatriptan succinate 50 mg tablet 50 mg PO DAILY PRN (Reason: Migraines) estradiol 0.01 % (0.1 mg/gram) cream 1 applic VAG QWEEK PRN (Reason: vaginal symptoms) clobetasol 0.05 % solution 1 applic topical BEDTIME PRN (Reason: Psoriasis flare) Follow up/Referrals: Ne Bennett PA-C [Primary Care Provider] - Bakari Dc MD [Physician] - 08/19/23 10:30 am (Follow up w/ Ines Burris PA-C, at [facility] in [place].) Diet/Activity/Treatments Diet: Diet as Tolerated Activity: NO active range of motion at the shoulder for 4 weeks after surgery. Pendulum exercises are ok. Start OT 3-4 days after surgery. Sling on at most times during the day when active; may have off when seated. Wear sling while sleeping. Ok to use hand to eat and type. Cold/Heat Therapy: Ice to shoulder as needed for pain. Skin/Wound/Dressing Care Report to your healthcare provider any signs of infection, such as:: chills, fever, night sweats, unusual drainage and unusual redness Dressing: May shower. Leave dressing in place until follow up in office. Call the office if the dressing becomes saturated inside. Visit Report/Discharge Packet Instructions: DI for Prescription Opioid Use, DI for Shoulder Replacement Stand Alone Forms: Patient Portal/API, Surgery Discharge Discharge Data Primary Care Provider: Ne Bennett Attending Provider: Bakari Dc VTE Deep Vein Thrombosis/Pulmonary Embolism Present on Admission: No
[2023-08-09] MEDS: DOCUSATE 100 MG CAPSULE PO (08:27)
--- NOTE | 2023-08-09 11:08 | PT.IPTN ---
Current Diagnoses Primary osteoarthritis, right shoulder (08/08/23) Presence of unspecified artificial shoulder joint (08/08/23) Surgery Performed Operation Date: 08/08/23 07:45 Actual Procedures p Total Shoulder Arthroplasty(Right) - Bakari Dc MD Physical Therapy Treatment Note M2 PT-IP Current Condition Start: 08/08/23 13:21 Freq: NEEDED Status: Active Protocol: Document 08/08/23 13:20 MB (Rec: 08/08/23 13:41 MB [id number]) Physical Therapy Current Condition Current Condition Evaluation Date 08/08/23 Treatment Diagnosis R TSR M3 PT-IP Subjective Start: 08/08/23 13:21 Freq: NEEDED Status: Active Protocol: Document 08/09/23 12:07 TS (Rec: 08/09/23 12:29 TS [id number]) Subjective Physical Therapy Visit Type Type Treatment Note Visit Start Time 11:08 Visit Stop Time 11:35 Notes OT orders recommended Number of LABORATORY ENGINEER Visits 1 Physical Therapy Visit Comments Patient Comments Pt reports feeling better today, no nausea, is agreeable to PT. Therapy Pain Assessment Pain When Pain Assessed During Mobility Pain Present Pain Present Pain Reported M4 PT-IP Mobility and Gait Start: 08/08/23 13:21 Freq: NEEDED Status: Active Protocol: Document 08/09/23 12:07 TS (Rec: 08/09/23 12:29 TS [id number]) PT-Bed Mobility Assessment Supine to Sit Supine to Sit Standby Assistance Scooting Scooting to Edge of Bed Standby Assistance PT-Transfer Assessment Sit to and From Stand Sit to and from Stand Standby Assistance Equipment Transfer Assistive Device None Orthotic/Prosthetic Devices or Brace: No Comments Mobility Comments Supine to sit SBA with HOB elevated and LUE to upright trunk. Daughter was instructed in and performed donning of gait belt and management of RUE sling. Pt was educated on her shoulder precautions. STS from bed SBA with no UE support. She ambulated CGA with no AD ~150' with some unsteadiness. She performed steps x3 with CGA and use of single rail with LUE. Pt ambulated back to room, was left in chair, daughter in room, RN notified. Gait Assessment Gait Gait Assistance Required: Contact Guard Assist Distance (Feet) 150 Able to Maintain Weight Bearing Status Yes During Gait Assistive Devices Assistive Device None Orthotic/Prosthetic Devices or Brace: No Gait Deviations General Gait Pattern Lateral Trunk Lean Factors Limiting Gait Function Factors Limiting Gait Function Decreased Activity Tolerance, Decreased Strength,Pain,Poor Balance,Poor Safety Awareness Comments Gait Comments See mobility comments Stair Climbing Assessment Evaluation Level of Assist On Stairs Contact Guard Assistance,1 Person Assistance Devices Stair Climbing Assistive Devices Left Railing Technique/Endurance Stair Climbing Direction Ascend and Descend Stair Climbing Technique Step to Step Number of Steps Climbed 3 Comments Stair Climbing Comments See mobility comments PT-Balance Assessment Sitting Balance and Reactions Static Sitting Balance Ability Good Dynamic Sitting Balance Ability Good Standing Balance and Reactions Static Standing Balance Ability Good Dynamic Standing Balance Ability Fair Device Used FWW M5 PT-IP Objective Assessments Start: 08/08/23 13:21 Freq: NEEDED Status: Active Protocol: Document 08/08/23 13:20 MB (Rec: 08/08/23 13:41 MB [id number]) Orientation Orientation/Cognition Level of Alertness Alert Orientation Name,Age,Birthday,Month,Date, Year,Day of Week,Place, Situation Language Function Ability No Deficits Noted Safety Awareness Understands Safety Issues Memory Description No Deficits Noted Gross Range of Motion Upper Extremity ROM Impairments RUE in sling Lower Extremity ROM Assessment Within Functional Limits Strength Upper Extremity Strength Assessment Right Impaired Lower Extremity Strength Assessment Within Functional Limits M6 PT-IP Treatment Start: 08/08/23 13:21 Freq: NEEDED Status: Active Protocol: Document 08/08/23 13:20 MB (Rec: 08/08/23 13:41 MB [id number]) Physical Therapy Treatment Other Treatments Other Treatment Performed Per Dr. Dc's note, post-op right TSR protocol and no other details. PT provides [facility] post-op TSR handouts to patient, assume NWB and sling use, pt in sling M7 PT-IP Assessment and Plan Start: 08/08/23 13:21 Freq: NEEDED Status: Active Protocol: Document 08/09/23 12:07 TS (Rec: 08/09/23 12:29 TS [id number]) PT Summary Assessment and Plan Potential Rehabilitation Potential Good Summary Impairments Pain,ROM,Balance,Bed Mobility, Transfers,Gait,Activity Tolerance Progress Towards Goals Progressing Toward Goals Assessment Summary Dahiana is making good progress with her mobility. She is performing bed mobility SBA with LUE support and STS with no AD. She progressed her gait to ~150' CGA with no AD, has minor LOB x1. She performed steps x3 CGA with single rail, had no LOB. PT is recommending home with 24/7 assist and HHPT. Goals Bed Mobility Goal Independent Transfer Goal Independent,Cane Gait Goal Independent,Cane Gait Distance 100 Other Goals Pt will ascend and descend 2 steps with rail. Days to Meet Goals 3 Frequency of Treatment Frequency Of Treatment Twice a Day Treatment Plan Physical Therapy Treatment Plan Bed Mobility Training,Transfer Training,Gait Training, Therapeutic Exercise,Balance Retraining,Post Op Education, Discharge Planning,Hot or Cold Pack Precautions Shoulder Precautions Sling Other Precautions Dr note only states post-op TSR precautions/protocol. Will assume NWB and sling. Weight Bearing Status Weight Bearing Status Non-Weight Bearing Recommendations To Nursing Amount of Assist Needed 1 Person Assist Discharge Recommendations PT Discharge Recommendations Home with 24/7 Assist Available,Outpatient PT Transportation Needs at Discharge Private Vehicle
--- NOTE | 2023-08-09 13:01 | CM.DANOTE ---
Initial DCP Assessment Note Pt is an 83 yo female, resident of [place], now POD#1 from Rt shoulder surgery by Dr Dc PCP: Ne Bennett Payer: Reji BACON Reviewed chart, pt discussed in multidisciplinary rounds this morning. Therapy has cleared pt for return home w/family to assist and pt has planned for home, DC order from Ortho has already been initiated this morning. No barriers identified at this time to patient's safe discharge home w/family to assist; close outpatient f/u recommended. CM team will plan to follow closely in case any DC needs or concerns arise. ROSA Sellers Discharge Planning/Care Management CM Discharge Assessment Start: 08/09/23 12:51 Freq: Status: Active Protocol: Document 08/09/23 12:52 CHE (Rec: 08/09/23 13:01 CHE [id number]) Discharge Planning Assessment Assigned Township Clerk ROSA [place] DPOA/Assigned Designee Name Citlaly Clark, willie Contact Information [phone] Advance Directives? Yes Advance Directives on File No History Provided By Patient,Medical Record Prior Living Arrangements House Household Members none Type of transporation used prior to Drives own vehicle admit Independent with ADL's Yes Is patient alert and oriented? Yes Patient/Family Preference OP PT Therapy Barriers to Discharge No Discharge Plan Home Transportation Arrangement Family Referrals Initiated None needed Additional Comment Outpatient PT
--- NOTE | 2023-08-09 13:10 | OT.IP.EVAL ---
Current Diagnoses Primary osteoarthritis, right shoulder (08/08/23) Presence of unspecified artificial shoulder joint (08/08/23) Surgery Performed Operation Date: 08/08/23 07:45 Actual Procedures p Total Shoulder Arthroplasty(Right) - Bakari Dc MD Past Medical History (Last Reviewed 08/08/23 @ 07:24 by Bakari Dc MD) Arthritis Bleeding ulcer (~2016) Breast cancer, right (2014) Closed L3 vertebral fracture DJD of right shoulder Easy bruisability Facet arthropathy, lumbar History of COVID-19 (08/2022) History of right breast cancer HLD (hyperlipidemia) Impingement syndrome of right shoulder Lumbar radiculopathy, acute Lumbosacral radiculopathy at L5 Psoriasis Sciatica Scoliosis 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 Surgical History (Last Reviewed 08/08/23 @ 07:24 by Bakari Dc MD) H/O abdominoplasty (12/2014) H/O right mastectomy (06/2014) Hx of LASIK Hx of left cataract extraction Hx of right knee surgery (2000) Hx of right knee surgery (2011) S/P epidural steroid injection Occupational Therapy Inpatient Evaluation/Re-Eval M1 PT/OT-IP Prior Functional Status Start: 08/08/23 13:21 Freq: NEEDED Status: Active Protocol: Document 08/09/23 15:54 CGR (Rec: 08/09/23 16:05 CGR [id number]) Medical Review Prior Functional Status Medical History Reviewed Yes Diet/Fluid Consistency Regular Communication Pt is an effective verbal communicator Mobility and Gait Pt was IND in all mobility at baseline without AD Activities of Daily Living and IADL's Pt was IND in all ADLs at baseline and lives alone. She is an active team driver. Social History Household Members none Living Arrangements House Number of Floors (Floors) One Floor Number of Stairs To Enter/Railing? 2 steps into dining room with B rails Home Environment Standard Height Toilet,Walk in Shower Home Equipment Front Wheel Walker,Shower Seat without Backrest,Hand Held Shower,Grab Bars In Shower Employment Status Retired Additional Social History Comment Pt has walking sticks M2 OT-IP Current Condition Start: 08/09/23 15:53 Freq: Status: Active Protocol: Document 08/09/23 15:54 CGR (Rec: 08/09/23 16:05 R [id number]) Occupational Therapy Current Condition Current Condition Evaluation Date 08/09/23 Treatment Diagnosis R TSA Diagnosis Onset Date 08/08/23 Post Operative Precautions Shoulder Precautions Sling,PROM,Internal Rotation to Body,No External Rotation, No Abduction,Forward Flexion to 90 degrees,Pendulums M3 OT- IP Subjective and Pain Start: 08/09/23 15:53 Freq: Status: Active Protocol: Document 08/09/23 15:54 CGR (Rec: 08/09/23 16:05 CGR [id number]) OT- Subjective Occupational Therapy Visit Type Type Initial Evaluation Visit Start Time 12:29 Visit Stop Time 13:10 Notes Pt waiting to see OT prior to discharge OT Pain Assessment Pain When Pain Assessed At Rest Pain Present Pain Present Pain Reported Location Right arm Intensity 6 Scale Used Numeric (0 - 10) Management Techniques Modification of Treatment,Re- positioning M4 OT- IP ADL's Start: 08/09/23 15:53 Freq: Status: Active Protocol: Document 08/09/23 15:54 CGR (Rec: 08/09/23 16:05 R [id number]) OT GRT-Zrgk-Uwzocsw General Evaluation Self-Feeding Ability Independent Comments OT Self-Feeding Comments finishing lunch when OT entered OT ADL-Grooming General Evaluation Areas Needing Assistance Face Washing Comments OT Grooming Comments not performed OT ADL-Oral Care Comments Oral Care Comments not performed OT ADL-Dressing General Eval Upper Body Dressing Ability Minimal Assistance Areas Needing Assistance Button-Up Shirt/Blouse, Orthosis/Prosthesis Comments OT Dressing Comments Pt educated on dressing with an injured UE. Pt states understanding then educated on donning and doffing sling. Pt and daughter state understanding. OT ADL-Toileting Comments OT Toileting Comments not performed OT ADL-Bathing Comments OT Bathing Comments not performed M5 OT- IP IADL's Start: 08/09/23 15:53 Freq: Status: Active Protocol: Document 08/09/23 15:54 CGR (Rec: 08/09/23 16:05 R [id number]) OT-Instrumental Activities of Daily Living Deficits IADL Deficits Identified No Deficits Home Safety Awareness Awareness of Need for Assistance at Home Good Awareness Ability to Problem Solve Emergency Able to Problem Solve Situations Medication Management Medication Management Caregiver Administers Money Management Money Management Caregiver Provides Assistance Meal Preparation Meal Preparation Caregiver Provides Assist Rig Welder Rig Welder Caregiver Provides Assist Driving Driving Comments 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 M6 OT- IP Functional Cognition Start: 08/09/23 15:53 Freq: Status: Active Protocol: Document 08/09/23 15:54 CGR (Rec: 08/09/23 16:05 CGR [id number]) Cognitive Factors Limiting Selfcare Function Cognitive Ability Level of Alertness Alert Patient Orientation Name,Age,Birthday,Month,Date, Year,Day of Week,Place, Situation Attention Span Ability Capable of Focused Attention, Capable of Sustained Attention Ability to Follow Commands Able to Follow Multi-Step Commands OT- Vision and Hearing OT- Hearing Assessment OT- Hearing Assessment WFL OT- Vision Assessment Visual Acuity Glasses For Reading Visual Attentiveness WFL Occular Pursuits WFL Visual Convergence WFL M7 OT- IP Mobility and Balance Start: 08/09/23 15:53 Freq: Status: Active Protocol: Document 08/09/23 15:54 CGR (Rec: 08/09/23 16:05 CGR [id number]) OT-Transfer Assessment Sit to and From Stand Sit to and from Stand Independent,Standby Assistance Transfers Transfer Ability Independent,Standby Assistance Technique Transfer Destination Chair Devices Transfer Assistive Devices None Comments Mobility Comments mobility around the room OT- Balance Assessment Sitting Balance and Reactions Static Sitting Balance Ability Normal Dynamic Sitting Balance Ability Normal M8 OT- IP Objective Assessments Start: 08/09/23 15:53 Freq: Status: Active Protocol: Document 08/09/23 15:54 CGR (Rec: 08/09/23 16:05 R [id number]) OT Gross Range of Motion Upper Extremity Range of Motion Assessment Right Impaired OT Strength Upper Extremity Strength Assessment Right Impaired Comments Strength Comments LUE grossly 4/5 OT- Coordination Assessment Upper Extremity Finger to Nose Test Right UE Impaired Finger Tapping Test Right UE Impaired OT-Muscle Tone Assessment Muscle Tone WNL Yes OT Sensation Assessment Edema Edema Absent M9 OT- IP Assessment and Plan Start: 08/09/23 15:53 Freq: Status: Active Protocol: Document 08/09/23 15:54 CGR (Rec: 08/09/23 16:05 CGR [id number]) OT Summary Assessment and Plan Potential Rehabilitation Potential Good Analytic Complexity at Evaluation Moderate Summary OT Impairments Pain,Range of Motion,Strength, Dressing,Bathing Progress Towards Goals Progressing Toward Goals Assessment Summary Pt presents as a moderate complexity evaluation s/p admit for R TSA. Pt requesting instruction with dressing so OT order obtained. Pt educated on UE dressing of clothing and sling. Pt taught UE therex and pt performed x 10 reps. Pt left sitting up in chair at end of session. Call button within reach and all needs at time met. Frequency of Treatment Frequency Of Treatment Discharge Discharge Recommendations OT Discharge Recommendations Home with Assistance Transportation Needs at Discharge Private Vehicle
--- NOTE | 2023-08-09 13:35 | PC.NURSE ---
Day shift: Left unit at approx 1335 via WC. Taken by PCT Jodi. Paperwork is signed and all questions answered. Daughter in room for d/c teaching. Pt did work with both PT and OT today and said she was glad to have done that. Especially with OT. Pt has all personal belongings. Pain well controlled per JUL. Dressing/Aquacel remains CDI on d/c. [facility] WNL also. MD scripts sent electronic to Pt's [facility].
== END 2023-08-09 13:38 | disposition home or self-care (01) ==
LOC: OR 06:17 → AC 06:19
PROVIDERS: PCP Physician Assistant; Referring Provider Orthopaedic Surgery; Visit Provider Orthopaedic Surgery
PROC: 0RQJ0ZZ Repair Right Shoulder Joint, Open Approach (ICD-10-PCS; CPT 23472; principal; 2023-08-08 07:45)
DX: M19.011 Primary osteoarthritis, right shoulder (principal)
CPT/HCPCS: 23472; 36415; 73030; 82565; 85027; 97116; 97161; 97166; 97530; 97535; C1776; J0171; J1100; J1170; J2405; J2704; J3010

== ENCOUNTER 2023-11-07 10:18 | Outpatient (CLI) | payer MEDICARE, SELFPAY ==
[2023-08-08 11:06] VITALS: BMI 24.1
[2023-11-07] VITALS (9 sets, daily range): BP systolic 147–195; BP diastolic 71–106; PULSE 65–79; RESP 11–19; TEMP 36.8; O2SAT 96–100
--- NOTE | 2023-11-07 11:15 | DI.RAD.S_ITS ---
PROCEDURE: PAIN L/SI FACET INJ/BLK 1STL INDICATIONS: left L3, L4, L5 MB RFA COMPARISON: [facility], , PAIN L/SI FACET INJ/BLK 1STL, 05/16/2023, 14:52. FINDINGS: Fluoroscopic spot filming was performed to verify placement of spinal needles at the L3 through L5 level(s), as labeled on the films. Appropriate location(s) of the needle tip(s) was confirmed by injection of iodinated contrast. IMPRESSION: Contrast needle placement overlying L3 through L5. Dictated by: Nery Burris M.D. on 11/07/2023 at 17:00 Approved by: Nery Burris M.D. on 11/07/2023 at 17:01
[2023-11-07] MEDS: MIDAZOLAM 2 MG/2 ML VIAL IV (11:59)
[2023-11-07] MEDS: LIDOCAINE 1% 20 ML 5 ML INJ (12:03)
[2023-11-07] MEDS: BUPIVACAINE 0.5% (PF) 10 ML VIAL 5 ML INJ (12:03)
[2023-11-07] MEDS: fentaNYL 100 MCG/2 ML INJ 25 MCG IV (12:08)
--- NOTE | 2023-11-07 12:31 | P.PCN_ITS ---
Date/Time/Diagnoses Date of procedure: 11/07/23 Time of procedure: 12:31 Pre-procedure diagnosis: 1. RECALCITRANT FACET ARTHROPATHY Post-procedure diagnosis: same Procedure Notes Procedure: 1. LEFT L3, L4, L5 MEDIAL BRANCH RADIOFREQUENCY NEUROTOMY Indications: Dahiana is referred by CATALINA Bennett for treatment of facet arthropathy. Physician: Atif Carter Total Fluoroscopy time (seconds): 22 Total sedation minutes: 27 Complications: none Procedure in detail & Post-procedure care: DESCRIPTION OF PROCEDURE Left L3, L4 and L5 medial branch radio-frequency neurotomy The patient is well known to this clinic having undergone previous facet injections with good but temporary relief. The patient has experienced appropriate, concordant relief with previous facet and median branch blocks but the patient's pain has been recalcitrant to further conservative measures. Therefore, based upon the patient's relief and persistent symptoms, the patient is considered an appropriate candidate for facet rhizotomy. All of the patient's questions regarding the risks versus benefits of the procedure, including, but not limited to, bleeding, infection, temporary as well as lasting nerve injury, paralysis, stroke, and , as well treatment alternatives were answered to satisfaction. After obtaining informed consent, denial of pertinent drug allergies, as well as being made aware of the potential risks of bleeding, infection, spinal cord trauma, paralysis, temporary and permanent nerve damage, seizure, stroke, and possible , the patient was brought to the fluoroscopy suite and positioned prone on the fluoroscopy table. The lumbar region was prepped with Betadine and covered with a fenestrated drape in the usual sterile fashion. Appropriate monitors applied including pulse oximeter, pulse, and blood pressure for regular monitoring throughout the procedure. After review of previous anaesthesic history and IV conscious sedation the patient was deemed safe to proceed with today?s procedure with IV conscious sedation as ASA class II designation. Safety time-out was performed to confirm patient ID, procedure to be performed and site of procedure. IV sedation was accomplished with a combination of 3mg of Versed administered by the RN after DO order, titrated to patient comfort during the course of the procedure while the patient remained responsive to all verbal commands. After local infiltration using 1% lidocaine, under fluoroscopic guidance, a 10- cm RF insulated needle with a 10-mm active tip was positioned parallel to the junction of the left the superior articulating process where the L3 medial branch resides. Needle placement was confirmed with sensory stimulation at 50 Hz, with motor stimulation of .5v on the left which produced local stimulation without radicular component. The stimulation was then increased to 2v with, once again, only local multifidus stimulation without radicular component. This was then followed by two discreet lesions performed at 80 degrees Celsius for 90 seconds each. The needle was then removed and the identical procedure was performed along the length of the left L4 medial branch with motor stimulation at .7v on the left. The identical procedure was once again performed along the length of the left L5 and medial branch with motor stimulation of .5v on the right. The patient tolerated the procedure well without signs or symptoms of complications prior to transfer to the recovery area continued monitoring without incident. The patient was then transferred to the recovery area where they were observed for an appropriate period of time after the injection. The patient reported a VAS score of 7 prior to the procedure and a post-procedure VAS of 2. POST OP INSTRUCTIONS The patient was provided a Pain Log to continue to record the patient's response to the target-specific procedure prior to the patient's follow-up visit with the referring physician. Additionally, specific post-injection care instructions and a contact number to our office were provided if concerns arise regarding possible complications associated with the procedure are suspected.
== END 2023-11-07 12:45 | disposition home or self-care (01) ==
PROVIDERS: PCP Physician Assistant; Referring Provider Physical Medicine & Rehabilitation; Visit Provider Physical Medicine & Rehabilitation
DX: M47.816 Spondylosis without myelopathy or radiculopathy, lumbar region (principal)
CPT/HCPCS: 64493; 64494; 99152; 99153; J2250; J3010